=== PATIENT | male | born 1950 | race Caucasian/White ===

== ENCOUNTER 2023-12-04 10:56 | Emergency (ER) | payer MEDICARE, SELFPAY ==
[2023-12-04 11:15] VITALS: BP 136/96
--- NOTE | 2023-12-04 12:14 | ED.MUSCINJ ---
HPI-Injury
General
Chief Complaint: Musculo-Skeletal Complaint
Time Seen by Provider: 12/04/23 12:05
History of Present Illness-Injury
Initial Injury comments:
73-year-old male with past medical history of prior CVA, hyperlipidemia, history of DVT, hypothyroidism, anxiety and depression, on Xarelto, here today for evaluation after he sustained a mechanical fall earlier today. He reports carrying an object
missing a step and falling onto the ground. He endorses twisting his right ankle and has since had pain laterally. He is able to ambulate endorses pain when doing so. He also sustained abrasions along his bilateral knees. Tetanus vaccination is
up-to-date. No head trauma or loss of consciousness. No pain or issues noted elsewhere.
Review of Systems
Review of Systems
All Other Systems: ROS reviewed and negative except as documented in HPI and ROS
Phy Exam
Physical Exam
Physical Exam:
GENERAL: Alert , in no apparent distress
EYE: pupils equal and reactive
NECK: Supple, no significant adenopathy.
NEUROLOGICAL: Alert and oriented, no focal neuro deficits
SKIN: Warm and dry, skin intact.
MUSCULOSKELETAL: There is mild tenderness to palpation along the anterior aspect of the right ankle, there is no tenderness laterally or medially, there is minimal tenderness along the base of the lateral aspect of the foot, there is a moderate
amount of swelling and ecchymosis, no deformities or step-offs appreciated, sensation and motor intact throughout, pulses 2+ throughout
PSYCH: Normal and appropriate interaction.
Injury Course
Orders/Labs/Results
Orders:
Orders
12/04/23 11:18
Ankle, Right 3 view CR [CR Ankle - Right Min 3 Views *] Urgent
Comment:
Reason For Exam: swelling, pain
12/04/23 12:09
CR Foot - Right Min 3 Views Urgent
Comment:
Reason For Exam: foot pain
MDM/Problems Addressed
Differential Diagnosis Includes:
73-year-old male with past medical history of prior CVA, hyperlipidemia, history of DVT, hypothyroidism, anxiety and depression, on Xarelto, here today for evaluation of right foot/ankle pain. Overall, patient appears well. Physical examination
described above. Given symptoms/findings, will begin with x-ray.
12/04/2023 14:15: X-rays reveal fracture of the fifth metatarsal bone as well as the navicular bone. There is also findings of extension into the fifth tarsometatarsal joint. Case discussed with orthopedic attending, Dr. Shobha Rothman who
recommends tall fracture walker day and night and recommends removing for showers only. They also state patient may bear weight to tolerance with or without crutches/walker. Recommend follow-up in office with orthopedics. Patient provided a
walking boot. I do not believe the patient would be safe/steady with crutches. Discussed providing a walker but he states he has 1 at home. Discussed fracture care and will recommend orthopedic follow-up. Patient voices understanding. All
questions answered. Stable for discharge. Case discussed with attending, Dr. Castellanos.
*Critical Care Note
Total Time (30-74mins, 75-104mins- exclusive of procedures): Not Applicable
ED Attending Note
-
Portions of this chart may have been created with voice recognition software.� Occasional wrong word or��sound alike� substitutions may have occurred due to the inherent limitations of voice recognition software.
Discharge Plan
Departure
Patient Disposition: Home (Routine Discharge)
Date of Disposition: 12/04/23
Time of Disposition: 14:21
Patient with high blood pressure during this ER visit?: Yes
Condition: Fair
Covid-19: Not Applicable
Discharge Problem:
Fracture of base of fifth metatarsal bone, Fracture of navicular bone of right foot
Instructions: Foot Fracture (DC)
Referrals:
Shobha Rothman I., DO [Active] - Follow up in 1 week
UNKNOWN - PT DOES,NOT KNOW [Family Provider] -
Activity Restrictions/Additional Instructions:
You were seen today for evaluation after you injured your right foot and ankle. We obtained an x-ray which revealed the following:
Acute, transversely oriented fracture through the base of the fifth metatarsal with mild displacement. The fracture plane extends to the medial margin of the fifth tarsometatarsal joint. Small nondisplaced fracture again noted at the dorsal aspect
of the navicular.
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 Mild hallux valgus. Mild joint space narrowing throughout the interphalangeal joints of the first through fifth toes. Soft tissue swelling about the foot and ankle. Mild
vascular calcifications.
We discussed your case with orthopedics and recommend wearing a walking boot during the day and night and only removing this for showering. Please elevate your lower extremity at night, ice the area 20 minutes on 20 minutes off, and take
[id number] analgesics as directed as needed.
Please follow-up with the orthopedic specialists as an outpatient within the next 7 days for close reevaluation.
Return for any new, worsening, or concerning symptoms.
Interventions
Interventions:
ED- Fall Risk Assessment Last Done: 12/04/23 12:25
ED-Musculoskeletal Assessment Last Done: 12/04/23 12:25
Discharge Date and Time
Print Language: CONGOLESE
[2023-12-04 14:20] VITALS: BP 132/84
== END 2023-12-04 14:37 | disposition home or self-care (01) ==
LOC: EMR 10:56
PROVIDERS: EMERGENCY PHYSICIAN Emergency Medicine
DX: S92.351A Displaced fracture of fifth metatarsal bone, right foot, initial encounter for closed fracture (principal); S92.251A Displaced fracture of navicular [scaphoid] of right foot, initial encounter for closed fracture; S90.31XA Contusion of right foot, initial encounter; S80.212A Abrasion, left knee, initial encounter; S80.211A Abrasion, right knee, initial encounter; W19.XXXA Unspecified fall, initial encounter; Y93.89 Activity, other specified; R03.0 Elevated blood-pressure reading, without diagnosis of hypertension; E78.5 Hyperlipidemia, unspecified; E03.9 Hypothyroidism, unspecified; F41.9 Anxiety disorder, unspecified; F32.A Depression, unspecified; Z79.01 Long term (current) use of anticoagulants; Z86.73 Personal history of transient ischemic attack (TIA), and cerebral infarction without residual deficits; Z86.718 Personal history of other venous thrombosis and embolism
CPT/HCPCS: 99283; 29515; 73610; 73630